=== PATIENT | female | born 1970 | race American Indian/Alaskan Native ===

== ENCOUNTER 2020-12-21 13:12 | Emergency (ER) | payer OTHER ==
[2020-12-21 15:01] VITALS: BP 108/61
[2020-12-21] MEDS ORDERED: CYCLOBENZAPRINE 10 MG TAB PO ONE (15:56)
[2020-12-21] MEDS ORDERED: IBUPROFEN 600 MG TAB PO ONE (15:56)
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
== END 2020-12-21 18:39 | disposition home or self-care (01) ==
LOC: ED 13:12
DX: S80.11XA Contusion of right lower leg, initial encounter (principal); M54.2 Cervicalgia; M54.50 Low back pain, unspecified; R51.9 Headache, unspecified; Z98.890 Other specified postprocedural states; Z79.899 Other long term (current) drug therapy; V87.7XXA Person injured in collision between other specified motor vehicles (traffic), initial encounter; Y93.89 Activity, other specified; Y92.488 Other paved roadways as the place of occurrence of the external cause; Y99.8 Other external cause status
CPT/HCPCS: 99283